=== PATIENT | female | born 1955 | race Caucasian/White ===

== ENCOUNTER 2017-11-19 13:08 | Day surgery (SDC) | payer OTHER ==
[2017-11-19] MEDS ORDERED: LACTATED RINGERS 1,000 ML IV ONE (13:30)
[2017-11-19] MEDS ORDERED: MIDAZOLAM 2 MG/2 ML VIAL IVP ONE (14:10)
[2017-11-19] MEDS ORDERED: fentaNYL 100 MCG/2 ML VIAL IVP ONE (14:10)
--- NOTE | 2017-11-19 14:11 | SURGERY HX AND PHYSICAL(T) ---
Surgical History & Physical - PMH/PSH/Social Hx Does the pt have a hx of MRSA?: No Eyes, Ears, Nose, Throat: None Cardiovascular: High cholesterol Respiratory: None Skin: None Endocrine/Autoimmune: None Gastrointestinal: None Urinary: None Musculoskeletal: None Psychiatric: None General: Colonoscopy Orthopedic: Other Smoking Status: Former smoker Does the pt drink ETOH?: Yes Frequency: Occasional Does the pt have substance abuse?: No - Home Meds and Allergies Home Medications: Atorvastatin Calcium [Lipitor] 04/26/14 Allergies/Adverse Reactions: Allergies Allergy/AdvReac Type Severity Reaction Status Date / Time No Known Drug Allergies Allergy Verified 04/26/14 08:58 - Vital Signs Temperature: 36.3 C Respiratory Rate: 18 O2 Saturation: 94 Weight (kg): 83.2 kg Height: 1.78 m - Patient Review Patient Review: Problems were reviewed with the patient during this visit. Medications were reviewed with the patient during this visit. Allergies were reviewed this patient during this visit. Pertinent Tests Reviewed: All pertitent test for this patient were reviewed. - Assessment & Plan Assessment and Plan: The patient was initially seen on September 20, 2017 for the same reason. The procedure was then scheduled out more than 30 days thus mandating an updated H& P. In my discussion with the patient there are no changes o her H&P - no new diagnoses, no new medications, no new allergies and no medications have been stopped. Additionally the patient does not have any new concerns or questions. Back on September 20, 2017, ARIELLE Maldonado sends this very pleasant 62 year-old female to our office for a screening colonoscopy She describes her bowel movements as regular and normal. She denies nausea, vomiting, constipation, diarrhea, melena, hematochezia, hematemesis, abdominal pain, unexplained weight loss, or change in the color, character or caliber of her stool. Her previous colonoscopy was performed December 24, [address] Lowell Donaldson and was described as a normal colonoscopy. Current Allergies: None. Current Medications: SUPREP BOWEL PREP KIT 17.5-3.13-1.6 GM/180ML ORAL SOLUTION (NA SULFATE-K SULFATE -MG SULF) Take one (6oz) bottle by mouth the PM before colonoscopy & one (6oz) bottle by mouth the AM of colonoscopy as directed by surgical clinic Past Medical History: Hyperlipidemia Menopause Past Surgical History: Shoulder Knee Family History Summary: Mother () - Has Family History of Other Medical Problems - HTN - Entered On: 09/20/2017 Risk Factors: Smoked Tobacco Use: Former smoker Cigarettes: Yes Year quit: 2006 Years Since Last Quit: 11 Drug use: no Alcohol use: no Exercise: yes Times per week: 3 Review of Systems CONSTITUTIONAL: No weight loss, fever, chills, weakness or fatigue. HEENT: Eyes: No visual loss, blurred vision, double vision or yellow sclerae. Ears, Nose, Throat: No hearing loss, sneezing, congestion, runny nose or sore throat. SKIN: No rash or itching. CARDIOVASCULAR: No chest pain, chest pressure or chest discomfort. No palpitations or edema. RESPIRATORY: No shortness of breath, cough or sputum. GASTROINTESTINAL: No anorexia, nausea, vomiting or diarrhea. No abdominal pain or blood. GENITOURINARY: No dysuria. Not . NEUROLOGICAL: No headache, dizziness, syncope, paralysis, ataxia, numbness or tingling in the extremities. No change in bowel or bladder control. MUSCULOSKELETAL: No muscle, back pain, joint pain or stiffness. HEMATOLOGIC: No anemia, bleeding or bruising. LYMPHATICS: No enlarged nodes. No history of splenectomy. PSYCHIATRIC: No history of depression or anxiety. ENDOCRINOLOGIC: No reports of sweating, cold or heat intolerance. No polyuria or polydipsia. ALLERGIES: No history of asthma, hives, eczema or rhinitis. Physical Exam General: 62 year old female, appears stated age, well developed, well nourished , evaluated in Room 4 in Ambulatory Surgery HEENT: Normocephalic, atraumatic, extraocular movement intact, mucous membranes pink and moist, sclera anicteric and not injected, glasses Neck: Supple without pain on palpation, mass or bruit Cardiac: Regular rate and rhythm without rub, gallop, or murmur Chest: Clear to auscultation bilaterally Abdomen: Soft, nontender, normoactive bowel sounds, no hepatomegaly, no splenomegaly Genitourinary: Deferred Rectal: Deferred until colonoscopy Extremities: No gross neurovascular problem, no clubbing, cyanosis or edema Gait: No gross motor deficit Psychiatric: Alert and oriented to person place and time, asks and answers questions appropriately, mood and affect appropriate Impression & Recommendations: Screening colonoscopy with possible biopsies and/or polypectomies. Indications , procedure, alternatives (such as barium enema, Cologuard and even no procedure at all) and risks including but not limited to perforation requiring operative repair, bleeding with its risks, and were fully explained to him. In the office, I rosy diagrams explaining the colonic anatomy and the proposed procedure and handed it to him. In the office, conscious sedation was discussed at length with him as were its risks including but not limited to loss of airway, aspiration, respiratory depression, and not enough relief of pain and anxiety and he indicated that he wished to have conscious sedation for his procedure. In the office, I explained that MAC anesthesia is associated with a higher incidence of colon perforation. Review of his history does not reveal any significant systemic disease that would contraindicate use of conscious sedation or MAC anesthesia. All questions were fully answered. Verbal and written consent was obtained. The patient in preparation for his colonoscopy has been n.p.o. and his colon has been mechanically prepped. 20 minutes of [id number] time spent with the patient the majority of which was spent in discussion and in the generation of this document
[2017-11-19 15:23] VITALS: BP 118/63
== END 2017-11-19 13:09 | disposition home or self-care (01) ==
LOC: SDS 13:08
PROVIDERS: ATTEND Surgery
PROC: 0DBP8ZZ Excision of Rectum, Via Natural or Artificial Opening Endoscopic (ICD-10-PCS; principal; 2017-11-19 14:15)
DX: Z12.11 Encounter for screening for malignant neoplasm of colon (principal); D12.8 Benign neoplasm of rectum; K57.30 Diverticulosis of large intestine without perforation or abscess without bleeding; K64.8 Other hemorrhoids; E78.5 Hyperlipidemia, unspecified; Z87.891 Personal history of nicotine dependence
CPT/HCPCS: 45385; J7120; 88305

== ENCOUNTER 2020-05-12 14:40 | Outpatient (CLI) | payer MEDICARE, OTHER ==
[2020-05-12] MEDS ORDERED: GADOBUTROL 10 MMOL/10 ML VIAL ONE (14:52)
--- NOTE | 2020-05-12 17:15 | MRI Report ---
PROCEDURE: Pelvis W/WO INDICATIONS: OVARIAN CYST CONTRAST: IV CONTRAST: Gadavist ml: 10 TECHNIQUE: Coronal ultra fast SE, sagittal breath-hold T2 FSE; axial T1 FSE with and without fat saturation thro ugh the pelvis. Optional long- and short-axis uterine nonbreath-hold T2 FSE through the uterus. Sag ittal or axial dynamic ultra fast GE during administration of contrast. Post-contrast axial or coron al ultra fast GE / 2-D spoiled GE with fat saturation from the iliac crests to the symphysis. Option al diffusion weighted imaging and ADC may be performed. COMPARISON: Pelvic ultrasound 04/23/2020. CT abdomen and pelvis 04/23/2020. FINDINGS: Image quality: Excellent. Uterus: Uterus is atrophic. Endometrium is normal in thickness. Junctional zone is normal in thick ness at 12 mm or less. Small nabothian cysts. Adnexa: Both ovaries are normal in size, without suspicious cystic or solid lesions. Right ovarian c yst measuring 2 x 1.7 cm, (601/22). The cyst demonstrates homogeneous intrinsic T1 hyperintensity whi ch drops out on the fat saturation sequence and T2 isointensity/hypointensity. No suspicious enhancem ent. Urinary system: Bladder is decompressed. Distal ureters are non distended. Urethra appears normal in morphology. Nodes and vessels: No pelvic or inguinal adenopathy by size criteria. Iliac vessels are normal in s ize. Bowel and peritoneum: No pathologic free pelvic fluid. Inferior colon and small bowel loops are nor mal in caliber. Diverticulosis. Soft tissues: No inguinal hernias. No findings of pelvic floor incompetence in the absence of provo cation. Bones: Marrow demonstrates normal overall signal. IMPRESSION: 1. Small right ovarian cyst measuring 2 cm demonstrates internal fat signal and no suspicious enhance ment. This is consistent with a benign dermoid cyst. 2. No hydrosalpinx. No free fluid. 3. No suspicious ovarian mass or cystic lesion. 4. Atrophic uterus. 5. Diverticulosis. Reviewed by: Luis Crowell MD on 05/12/2020 5:13 PM PDT Approved by: Luis Crowell MD on 05/12/2020 5:13 PM PDT Station ID: [id number]
== END 2020-05-12 14:41 | disposition home or self-care (01) ==
LOC: DI 14:40
PROVIDERS: ATTEND Family Medicine
DX: N85.8 Other specified noninflammatory disorders of uterus (principal); K57.90 Diverticulosis of intestine, part unspecified, without perforation or abscess without bleeding
CPT/HCPCS: 72197; A9585

== ENCOUNTER 2020-09-30 07:00 | Outpatient (CLI) | payer MEDICARE, OTHER | END 2020-09-30 23:59 | disposition home or self-care (01) | LOC: COV 07:00 | PROVIDERS: ATTEND Family Medicine | DX: U07.1 COVID-19 (principal) ==

== ENCOUNTER 2021-06-13 13:13 | Outpatient (CLI) | payer MEDICARE, OTHER ==
--- NOTE | 2021-06-14 13:55 | Mammography Report ---
BILATERAL DIGITAL SCREENING MAMMOGRAM 3D/2D: 06/13/2021 CLINICAL: Routine screening. Comparison is made to exams dated: 06/22/2020 mammogram - [facility], 05/19/2019 mamm ogram, 08/30/2016 mammogram - [facility], 08/13/2015 mammogram, 08/13/2015 mammogram, an d 08/13/2015 mammogram - [facility]. There are scattered fibroglandular elements in both breasts. There are benign post operative findings in both breasts. No significant masses, calcifications, or other findings are seen in either breast. There has been no significant interval change. IMPRESSION: BENIGN There is no mammographic evidence of malignancy. A 1 year screening mammogram is recommended. This exam was interpreted at Station ID: [id number]. NOTE: For mammograms, a report in lay terms will be sent to the patient. Approximately 15% of breast malignancies will not be visualized mammographically. In the management of a palpable breast mass, a negative mammogram must not discourage biopsy of a clinically suspicious lesion. Electronically Signed By: Lloyd Downey M.D. aty/penrad:06/13/2021 15:57:54 ACR BI-RADS Category 2: Benign Finding(s) 3342F PARENCHYMAL PATTERN: (A) - The breast(s) demonstrate(s) scattered fibroglandular densities. BI-RADS CATEGORY: (2) - 2 RECOMMENDATION: (ANNUAL) - Recommend routine annual screening mammography. [id number] 1 year screening LATERALITY: (B)
== END 2021-06-13 13:14 | disposition home or self-care (01) ==
LOC: DI 13:13
DX: Z12.31 Encounter for screening mammogram for malignant neoplasm of breast (principal)

== ENCOUNTER 2021-12-05 11:36 | Emergency (ER) | payer MEDICARE, OTHER ==
--- NOTE | 2021-12-05 12:03 | ED Physician Documentation ---
PD HPI BACK PAIN - Stated complaint Stated Complaint: BACK PAIN - Chief complaint Chief Complaint: Back Pain - History obtained from History obtained from: Patient - History of Present Illness Timing - onset: How many days ago (few days of low back pain without injury/traumatic onset. Was having stretching. TOday when bent over to stretch, had onset of right neck pain and feeling of marked vertigo.) Timing - details: Abrupt onset, Now resolved (notes the vertigo when tilts head up and quickly moves, getting spinning lightheadedness.) Location: Mid, Lower, Right Quality: Pain Associated symptoms: No: Fever, Weakness, Numbness, Incontinent of urine Improves with: No: Rest, Ice Worsened by: Movement, Twisting, Palpation, Other (vertigo worse with head movement.) Similar symptoms before: Has not had sx before Recently seen: Not recently seen Review of Systems Constitutional: denies: Fever, Chills Nose: denies: Rhinorrhea / runny nose, Congestion Throat: denies: Sore throat Cardiac: denies: Chest pain / pressure, Palpitations Respiratory: denies: Cough GI: denies: Abdominal Pain, Nausea, Vomiting, Diarrhea Skin: denies: Rash, Lesions Musculoskeletal: reports: Neck pain, Back pain Neurologic: denies: Focal weakness, Numbness, Near syncope, Headache, Head injury PD PAST MEDICAL HISTORY - Past Medical History Past Medical History: Yes Cardiovascular: High cholesterol Respiratory: None Neuro: None Endocrine/Autoimmune: None GI: None [employer]: None : None HEENT: None Psych: None Musculoskeletal: None Derm: None - Past Surgical History Past Surgical History: Yes General: Colonoscopy Ortho: Other - Present Medications Home Medications: Ambulatory Orders Medication Instructions Recorded Confirmed Sertraline [Zoloft] 50 mg PO DAILY 04/23/20 12/05/21 Atorvastatin Calcium 40 mg PO HS 12/05/21 12/05/21 HYDROcod/ACETAM 5/325 [[place] 5/325] 1 ea PO Q6H PRN #18 tablet 12/05/21 Meclizine HCl [Motion Sickness] 25 mg PO Q6H PRN #25 tablet 12/05/21 dexAMETHasone [Decadron] 4 mg PO DAILY #5 tablet 12/05/21 methocarbamoL [Robaxin] 500 mg PO TID PRN #25 tablet 12/05/21 - Allergies Allergies/Adverse Reactions: Allergies Allergy/AdvReac Type Severity Reaction Status Date / Time No Known Drug Allergies Allergy Verified 12/05/21 11:40 - Social History Does the pt smoke?: No Smoking Status: Never smoker Does the pt drink ETOH?: Yes Does the pt have substance abuse?: No - Immunizations Immunizations are current?: Yes - POLST Patient has POLST: No PD ED PE NORMAL - Vitals Vital signs reviewed: Yes - General General: Alert and oriented X 3, No acute distress - HEENT HEENT: PERRL, EOMI (with nystagmus to the left. ), Moist mucous membranes - Neck Neck: Supple, no meningeal sign, No adenopathy - Cardiac Cardiac: RRR, No murmur - Respiratory Respiratory: Clear bilaterally - Abdomen Abdomen: Soft, Non tender - Back Back: No CVA TTP, Other (tender muscle right la) - Derm Derm: Normal color, Warm and dry, No rash - Extremities Extremities: No edema, No calf tenderness / cord - Neuro Neuro: Alert and oriented X 3, No motor deficit, Normal speech Results - Vitals Vitals: Oxygen O2 Source Room air - Labs Labs: Laboratory Tests 12/05/21 12/05/21 11:56 11:56 WBC 9.7 RBC 4.59 Hgb 14.1 Hct 42.9 MCV 93.5 MCH 30.7 MCHC 32.9 RDW 13.2 Plt Count 282 MPV 10.7 Neut # (Auto) 7.1 H Lymph # (Auto) 1.9 [place] # (Auto) 0.4 Eos # (Auto) 0.1 Baso # (Auto) 0.1 Absolute Nucleated RBC 0.00 Nucleated RBC % 0.0 Sodium 138 Potassium 3.5 Chloride 102 Carbon Dioxide 27 Anion Gap 9.0 BUN 13 Creatinine 0.7 Estimated GFR (MDRD) 83 L Glucose 99 Calcium 9.1 Total Bilirubin 0.6 AST 17 ALT 20 Alkaline Phosphatase 94 Total Protein 7.6 Albumin 4.4 Globulin 3.2 Albumin/Globulin Ratio 1.4 Lipase 27 PD MEDICAL DECISION MAKING - ED course Complexity details: considered differential (back pain without injury and now neck pain and vertigo. likely separate process, but to connect them would likely mean vascular such as aortic with dissection. Can get imaging to eval. ), d/w patient Departure - Departure Disposition: 01 Home, Self Care Clinical Impression: Positional vertigo Back pain, acute Qualifiers: Back pain location: low back pain Back pain laterality: bilateral Sciatica presence: without sciatica Qualified Code(s): M54.50 - Low back pain, unspecified Condition: Stable Record reviewed to determine appropriate education?: Yes Instructions: ED Low Back Pain Injury, ED Vertigo Unspecified Follow-Up: TALISHA MACK DO [Primary Care Provider] - Prescriptions: dexAMETHasone [Decadron] 4 mg PO DAILY #5 tablet Meclizine HCl [Motion Sickness] 25 mg PO Q6H PRN #25 tablet PRN Reason: Vertigo HYDROcod/ACETAM 5/325 [[place] 5/325] 1 ea PO Q6H PRN #18 tablet PRN Reason: Pain methocarbamoL [Robaxin] 500 mg PO TID PRN #25 tablet PRN Reason: Spasms Comments: The CT scan of your head appears normal and your description and findings of the vertigo seen consistent with inner ear process. We can treat this with meclizine motion sickness medicine (antivertigo) along with anti-inflammatory in case of some in her ear inflammation as a cause. Otherwise it may be mechanical with small calcifications just out of place and those typically settle after a while. Your back pain is presumed musculoskeletal. No obvious signs of fractures or significant abnormality on the spine. There are arthritic changes noted on your CT scan. Most importantly there is no signs of organ injury or vascular process such as aneurysms dissections or clots. Continue with gentle stretching of your back. Try to avoid any bending over or head movement per se. Initiate physical therapy as planned. Otherwise continue with some Tylenol 4 times a day and to that add hydrocodone every 4-6 hours if needed for worse pain. You could also use methocarbamol muscle relaxant for stiffness and spasms. Recheck if not improved well over the next several days to week. I transmitted your prescriptions to [facility] in [place]. I am prescribing a short course of narcotic pain medication for you. These are potentially dangerous and addictive medications that should be used carefully. These medications may constipate you. Take an [id number] stool softener such as docusate twice daily with plenty of water while taking these medications. If you go 24 hours without a bowel movement, take [id number] MiraLAX, per package instructions. Do not drink or drive while taking these medications. If you received narcotic or sedating medications while in the emergency department do not drive for 24 hours. Store this medication in a safe, secure place and out of reach of children. It is a violation of federal law to give or sell this medication to another person or to use in a manner other than prescribed. The ED will not refill narcotic prescriptions, including prescriptions lost or stolen. You can dispose of unwanted medications at the [facility] office or at several pharmacies such as [facility]. Discharge Date/Time: 12/05/21 15:43
[2021-12-05] MEDS ORDERED: SODIUM CHLORIDE 0.9% 1,000 ML IV STA (12:33)
[2021-12-05] MEDS ORDERED: HYDROmorphone 1 MG/ML CARPUJECT IVP STA (12:33)
[2021-12-05] MEDS ORDERED: KETOROLAC 30 MG/ML VIAL IVP STA (12:33)
[2021-12-05] MEDS ORDERED: MECLIZINE 12.5 MG TABLET PO STA (12:40)
[2021-12-05] MEDS ORDERED: DEXAMETHASONE 10 MG/ML VIAL IVP STA (12:40)
[2021-12-05 12:47] LABS: BASOPHILS # (AUTO) 0.1 10^3/uL (0.0-0.1); BASOPHILS % (AUTO) 0.9 %; EOSINOPHILS # (AUTO) 0.1 10^3/uL (0.0-0.7); HCT - HEMATOCRIT 42.9 % (37.0-47.0); HGB - HEMOGLOBIN 14.1 g/dL (12.0-16.0); LYMPHOCYTES # (AUTO) 1.9 10^3/uL (1.5-3.5); LYMPHOCYTES % (AUTO) 19.4 %; MEAN CORPUSCULAR HEMOGLOBIN 30.7 pg (27.0-31.0); MEAN CORPUSCULAR HGB CONC 32.9 g/dL (32.0-36.0); MEAN CORPUSCULAR VOLUME 93.5 fL (81.0-99.0); MEAN PLATELET VOLUME 10.7 fL (7.9-10.8); MONOCYTES # (AUTO) 0.4 10^3/uL (0.0-1.0); MONOCYTES % (AUTO) 4.5 %; NEUTROPHILS # (AUTO) 7.1 10^3/uL (1.5-6.6); NEUTROPHILS % (AUTO) 73.8 %; PLT - PLATELET COUNT 282 10^3/uL (130-450); RED BLOOD COUNT 4.59 10^6/uL (4.20-5.40); RED CELL DISTRIBUTION WIDTH 13.2 % (12.0-15.0); WHITE BLOOD COUNT 9.7 x10^3/uL (4.8-10.8)
[2021-12-05 12:59] LABS: ALBUMIN 4.4 g/dL (3.2-5.5); ALBUMIN/GLOBULIN RATIO 1.4 (1.0-2.2); BILIRUBIN,TOTAL 0.6 mg/dL (0.2-1.0); CALCIUM 9.1 mg/dL (8.5-10.3); CREATININE 0.7 mg/dL (0.4-1.0); POTASSIUM 3.5 mmol/L (3.5-5.0); TOTAL PROTEIN 7.6 g/dL (6.7-8.2)
[2021-12-05] MEDS ORDERED: iohexoL-300 100 ML VIAL ONE (13:07)
--- NOTE | 2021-12-05 14:11 | CT Report ---
PROCEDURE: HEAD WO INDICATIONS: acute vertigo last 12 hours TECHNIQUE: Noncontrast 4.5 mm thick angled axial sections acquired from the foramen magnum to the vertex. For r adiation dose reduction, the following was used: automated exposure control, adjustment of mA and/or kV according to patient size. COMPARISON: None. FINDINGS: Image quality: Excellent. CSF spaces: Basal cisterns are patent. No extra-axial fluid collections. The ventricles are symmet valarie in size and shape. Brain: No intracranial bleeds or masses. There is cerebral volume loss for age, with resultant vent ricular and sulcal prominence. There are periventricular and deep white matter chronic small vessel ischemic changes. There is intracranial internal carotid artery atherosclerosis. Skull and face: Calvarium and visualized facial bones appear intact, without suspicious lesions. Sinuses: Visualized sinuses and mastoids are clear. IMPRESSION: 1. No CT evidence of acute intracranial abnormalities. Reviewed by: Killian Britton MD on 12/05/2021 2:10 PM [facility] Approved by: Killian Britton MD on 12/05/2021 2:10 PM [facility] Station ID: [id number]
--- NOTE | 2021-12-05 14:57 | CT Report ---
PROCEDURE: ANGIO CHEST W/WO INDICATIONS: Thoracolumbar pain with lightheadedness; eval aorta CONTRAST: IV CONTRAST: Isovue 300 ml: 100 PO CONTRAST: *NO PO CONTRAST TECHNIQUE: Precontrast 3 mm thick sections acquired from the aortic arch through the diaphragms. After the admi nistration of intravenous contrast, 3 mm thick sections again acquired from the lung apices through t he diaphragms. 3 mm coronal and sagittal reformats were performed. For radiation dose reduction, the following was used: automated exposure control, adjustment of mA and/or kV according to patient size . COMPARISON: Concurrent CTA of the abdomen and pelvis, CT abdomen pelvis 04/23/2020. FINDINGS: Image quality: Excellent. AORTA: Noncontrast images demonstrate no evidence of intramural hematoma. The thoracic aorta is caden l in caliber and contour. No intimal flaps are identified to suggest aortic dissection. No contour ir regularities to suggest acute aortic injury. No periaortic hematoma. There is conventional branching of the aortic arch. The visualized great vessels are normal in caliber and appear patent. The celiac and superior mesenteric arteries within the visualized upper abdomen appear patent. The visualized re nal arteries also appear patent, with mild sclerotic narrowing in the proximal right renal artery. Th ere is mild scattered atherosclerotic plaque along the visualized aorta and its branch vessels. CHEST: Lungs and pleura: There is bilateral pleural thickening in the lung apices, right greater than left. There is also lobulated pleural thickening posteriorly along the right upper lobe measuring up to 1 .9 x 0.7 cm in transverse dimension on series 7 image 51. No acute consolidation. There are bilateral indistinct areas of mild ground glass opacity. There are a few small scattered pulmonary nodules rajesh aterally. These include a right middle lobe nodule measuring 0.4 cm on series 7 image 172, a 0.5 cm r ight middle lobe nodule on series 7 image 181, a 0.3 cm nodule in the right lower lobe on series 7 im age 233, and a 0.3 cm left lower lobe nodule on series 7 image 21. There are mild paraseptal emphysem atous changes. No pleural effusions or pneumothorax. Central and peripheral airways are patent and n ormal in caliber. Mediastinum: Heart size is normal. No pericardial effusion. No mediastinal or hilar adenopathy by size criteria. The pulmonary arteries are normal in size and demonstrate no filling defects to sugges t central pulmonary embolism. Esophagus is normal in caliber. There is a small hiatal hernia. Bones and chest wall: No axillary adenopathy by size criteria. The visualized thyroid demonstrates no discrete nodules. No suspicious bony lesions. No vertebral body compression fractures. There is m ultilevel degenerative disc disease including moderate degeneration within the mid and lower thoracic spine. Bridging anterior osteophytes are also demonstrated within the thoracic spine consistent with DISH. ABDOMEN: The visualized upper abdomen redemonstrates multiple left hepatic cysts. IMPRESSION: 1. No evidence of dissection or aneurysm dilatation in the thoracic aorta. 2. No central pulmonary embolism. 3. No acute airspace consolidation. 4. Small indistinct groundglass opacities bilaterally are nonspecific and may reflect mild chronic ed vick or mild infectious or inflammatory process. 5. Small bilateral nonspecific pulmonary nodules measuring up to 0.5 cm. There is also asymmetric ple ural thickening posteriorly along the right upper lobe. Recommend follow-up CT in 6 months to demonst rate stability. 6. Multilevel degenerative disc disease in the mid and lower thoracic spine. Reviewed by: Alfonso Denis MD on 12/05/2021 2:56 PM PST Approved by: Alfonso Denis MD on 12/05/2021 2:56 PM PST Station ID: [id number]
--- NOTE | 2021-12-05 15:07 | CT Report ---
PROCEDURE: ANGIO ABDOMEN/PELVIS W INDICATIONS: thoracolumbar back pain with lightheadedness CONTRAST: IV CONTRAST: Isovue 300 ml: 100 PO CONTRAST: *NO PO CONTRAST TECHNIQUE: After the administration of intravenous contrast, 3 mm sections acquired from the diaphragm through t he pubic symphysis. 3-dimensional maximum intensity projection (MIP) coronal and sagittal reformats, and/or 3-dimensional volume rendering reformatting was then performed. For radiation dose reduction , the following was used: automated exposure control, adjustment of mA and/or kV according to patien t size. COMPARISON: Concurrent CTA of the chest, CT abdomen pelvis 04/23/2020 FINDINGS: Image quality: Excellent. Extravascular tissues: The visualized lung bases demonstrate no consolidation. There are a few scatte red small bilateral pulmonary nodules as described on the concurrent CT of the chest. Heart size is n ormal. Multiple cysts are redemonstrated within the left hepatic lobe. Gallbladder appears within no rmal limits without calcified gallstones. There is a phrygian cap noted. Biliary system is non dilate d. Pancreas enhances normally. No adrenal nodules. Kidneys demonstrate no hydronephrosis. The splee n is normal in size. There is a small hiatal hernia. Small and large bowel loops demonstrate normal w all thickness and caliber. The appendix is normal in appearance. There is colonic diverticulosis with out acute diverticulitis. No free fluid or air. No retroperitoneal or mesenteric adenopathy. No ve ntral hernias. There is a small oval fat density mass within the right adnexa redemonstrated, measuri ng up to 1.3 cm with associated eccentric focus of calcification suggestive of a dermoid. Abdominal aorta: The aorta is normal in caliber and contour without intimal flaps to suggest dissect ion. The common, external, and internal iliac arteries also appear patent. The common femoral and vis ualized proximal superficial femoral arteries also appear patent. There is scattered mild atheroscler otic plaque bilaterally. The celiac artery and its branches appear widely patent. The superior mesenteric artery demonstrates moderate short segment narrowing proximally of up to approximately 50%. Remaining opacified superior mesenteric artery branches appear patent. The inferior mesenteric artery appears patent. There are si ngle renal arteries bilaterally. There is mild narrowing in the proximal right renal artery near its origin. The liver and artery appears widely patent along its course. Bones: There is multilevel mild to moderate degenerative disc disease within the visualized lower tho racic spine and mild degenerative disc disease in the lumbar spine. Mild inferior endplate scalloping is demonstrated at a few levels most prominent within the L1 vertebral body. No vertebral compressio n fractures. There is mild facet arthropathy in the lower lumbar spine. IMPRESSION: 1. No evidence of aortic aneurysm in the abdominal aorta. 2. No high-grade stenosis or occlusion of the abdominal aorta or its proximal branch vessels. 3. Mild short segment narrowing in the proximal superior mesenteric artery of up to approximately 50% . 4. Probable dermoid in the right adnexa. Reviewed by: Alfonso Denis MD on 12/05/2021 3:06 PM PST Approved by: Alfonso Denis MD on 12/05/2021 3:06 PM PST Station ID: [id number]
[2021-12-05 15:43] VITALS: BP 145/66
[2021-12-05] MEDS ORDERED: iohexoL-300 100 ML VIAL IVP ONE (19:09)
== END 2021-12-05 15:43 | disposition home or self-care (01) ==
LOC: ED 11:36
DX: H81.10 Benign paroxysmal vertigo, unspecified ear (principal); M54.50 Low back pain, unspecified
CPT/HCPCS: 36415; 70450; 71275; 74174; 80053; 83690; 85025; 96374; 99284; A9270; J1170; Q9967

== ENCOUNTER 2022-02-02 08:07 | Emergency (ER) | payer MEDICARE, OTHER ==
[2022-02-02] MEDS ORDERED: KETOROLAC 15 MG/ML VIAL IVP STA (08:21)
--- NOTE | 2022-02-02 08:24 | ED Physician Documentation ---
PD HPI ABD PAIN - Stated complaint Stated Complaint: RT SIDE PX - Chief complaint Chief Complaint: Abd Pain - History obtained from History obtained from: Patient - Additional information Additional information: 66-year-old woman with sudden onset right-sided abdominal pain starting last night. She was not doing anything specific at the time. She had noted urinary frequency associated with this. Denies nausea or other changes in urination or bowel movements. No history of abdominal surgeries. Pain is severe but declines narcotics as she is driving. Of note she was seen for right-sided abdominal pain in April 2020. At that time work-up demonstrated a small pelvic mass of unknown etiology. Follow-up was recommended [place] no [place]evaluation was ever done. Review of Systems Ten Systems: 10 systems reviewed and negative Constitutional: denies: Fever, Chills Cardiac: denies: Chest pain / pressure Respiratory: denies: Dyspnea, Cough GI: reports: Abdominal Pain. denies: Nausea, Vomiting, Constipation, Diarrhea, Hematemesis, Bloody / black stool PD PAST MEDICAL HISTORY - Past Medical History Cardiovascular: High cholesterol Respiratory: None Neuro: None Endocrine/Autoimmune: None GI: None PETROLOGIST: None : None HEENT: None Psych: None Musculoskeletal: None Derm: None - Past Surgical History Past Surgical History: Yes General: Colonoscopy Ortho: Other - Present Medications Home Medications: Ambulatory Orders Medication Instructions Recorded Confirmed Sertraline [Zoloft] 50 mg PO DAILY 04/23/20 12/05/21 Atorvastatin Calcium 40 mg PO HS 12/05/21 12/05/21 HYDROcod/ACETAM 5/325 [[place] 5/325] 1 ea PO Q6H PRN #18 tablet 12/05/21 Meclizine HCl [Motion Sickness] 25 mg PO Q6H PRN #25 tablet 12/05/21 dexAMETHasone [Decadron] 4 mg PO DAILY #5 tablet 12/05/21 methocarbamoL [Robaxin] 500 mg PO TID PRN #25 tablet 12/05/21 Ciprofloxacin HCl [Cipro] 500 mg PO BID #20 tablet 02/02/22 HYDROcod/ACETAM 5/325 [[place] 5/325] 1 - 2 tab PO Q6H PRN #15 tablet 02/02/22 metroNIDAZOLE [Flagyl] 500 mg PO TID 10 Days #30 tablet 02/02/22 - Allergies Allergies/Adverse Reactions: Allergies Allergy/AdvReac Type Severity Reaction Status Date / Time No Known Drug Allergies Allergy Verified 02/02/22 08:14 - Social History Does the pt smoke?: No Smoking Status: Never smoker Does the pt drink ETOH?: Yes Does the pt have substance abuse?: No - Immunizations Immunizations are current?: Yes - POLST Patient has POLST: No PD ED PE NORMAL - Vitals Vital signs reviewed: Yes - General General: Alert and oriented X 3, Other (She appears uncomfortable and in pain) - HEENT HEENT: PERRL, EOMI - Neck Neck: Supple, no meningeal sign, No bony TTP - Cardiac Cardiac: RRR, No murmur - Respiratory Respiratory: No respiratory distress, Clear bilaterally - Abdomen Abdomen: Normal bowel sounds, Soft, Other (Exquisitely tender in the right upper quadrant with positive Juan sign. No diffuse abdominal tenderness.) - Back Back: No CVA TTP, No spinal TTP - Derm Derm: Normal color, Warm and dry - Extremities Extremities: No edema, No calf tenderness / cord - Neuro Neuro: Alert and oriented X 3, Normal speech Results - Vitals Vitals: Vital Signs - 24 hr 02/02/22 08:10 Temperature 37.2 C Heart Rate 83 Respiratory 19 Rate Blood Pressure 130/65 O2 Saturation 95 Oxygen O2 Source Room air - Labs Labs: Laboratory Tests 02/02/22 02/02/22 02/02/22 08:36 08:36 08:50 WBC 14.6 H RBC 4.21 Hgb 12.8 Hct 38.7 MCV 91.9 MCH 30.4 MCHC 33.1 RDW 13.2 Plt Count 246 MPV 10.4 Neut # (Auto) 10.3 H Lymph # (Auto) 2.7 [place] # (Auto) 1.1 H Eos # (Auto) 0.3 Baso # (Auto) 0.1 Absolute Nucleated RBC 0.00 Nucleated RBC % 0.0 Sodium 142 Potassium 3.5 Chloride 105 Carbon Dioxide 24 Anion Gap 13.0 BUN 11 Creatinine 0.7 Estimated GFR (MDRD) 83 L Glucose 102 H Calcium 8.5 Total Bilirubin 0.6 AST 18 ALT 27 Alkaline Phosphatase 74 Total Protein 7.0 Albumin 3.8 Globulin 3.2 Albumin/Globulin Ratio 1.2 Lipase 33 Urine Color YELLOW Urine Clarity CLEAR Urine pH 5.5 Ur Specific [place] >=1.030 H Urine Protein NEGATIVE Urine Glucose (UA) NEGATIVE Urine Ketones NEGATIVE Urine Occult Blood MODERATE H Urine Nitrite NEGATIVE Urine Bilirubin NEGATIVE Urine Urobilinogen 0.2 (NORMAL) Ur Leukocyte Esterase TRACE H Urine RBC 0-5 Urine WBC 4-5 Ur Squamous Epith Cells MOD Squamous H Urine Bacteria Moderate H Ur Microscopic Review INDICATED Urine Culture Comments NOT INDICATED - Rads (name of study) Abdominal CT with IV contrast consistent with colitis Radiology: EMP read contemporaneously PD MEDICAL DECISION MAKING - ED course ED course: 66-year-old woman presents with right upper quadrant pain since yesterday with tenderness. Initial concern was for biliary etiology but an ultrasound did not show any gallbladder pathology. Of note she had a prior lesion in the right adnexa and this was reevaluated today without change suggesting a benign grant ology after 2 years. Since the ultrasound was negative this was followed with CT showing cystitis/right-sided colitis and this will be treated with Cipro and Flagyl pending follow-up. She understands the need for colonoscopy and follow- up. Departure - Departure Disposition: 01 Home, Self Care Clinical Impression: Abdominal pain, Colitis Condition: Good Record reviewed to determine appropriate education?: Yes Instructions: Abdominal Pain Prescriptions: Ciprofloxacin HCl [Cipro] 500 mg PO BID #20 tablet metroNIDAZOLE [Flagyl] 500 mg PO TID 10 Days #30 tablet HYDROcod/ACETAM 5/325 [[place] 5/325] 1 - 2 tab PO Q6H PRN #15 tablet PRN Reason: Pain Comments: As discussed, the right ovarian lesion which likely represents a dermoid cyst has not changed over the last 2 years and as such I do not think any further follow-up is necessary for that. On the CT, you do have a case of right-sided colitis. For this I sent a prescription for antibiotics and painkillers to [facility] in [place]. As discussed, you should talk with your primary care physician about getting you scheduled for a colonoscopy albeit not immediately to further evaluate this. Do not drink alcohol while on antibiotics. Return anytime if worse, or if not improving over the next 48 hours. Follow-up with your doctor next week. I am prescribing a short course of narcotic pain medication for you. These are potentially dangerous and addictive medications that should be used carefully. These medications may constipate you. Take an azlq-rxn-ogdpsiy stool softener (docusate) twice daily with plenty of water while taking these medications. If you go 24 hours without a bowel movement, take [id number]-djm-vgolkyh miralax, per package instructions. Do not drink or drive while taking these medications. If you received narcotic or sedating medications while in the emergency department, do not drive for 24 hours. Store this medication in a safe, secure place and out of reach of children. It is a violation of federal law to give or sell this medication to another person or to use in a manner other than prescribed. The ED will not refill narcotic prescriptions, including prescriptions lost or stolen. To dispose of unwanted medications: 1. [facility] [address] in [place] has a medication drop box. They accept prescription medications (in pill form) Sunday through Sunday 9:00 a.m. to 5:00 p.m. 2. The [facility] [employer] accepts prescription medications (in pill form only) for disposal year round. Call for more i nformation. 3. Contact the [facility] for the next [facility] sponsored prescription drug collection event. , [phone], or [phone]; Note that many narcotic pain relievers also contain Tylenol/acetaminophen. Please ensure that your total dose of acetaminophen from all sources does not exceed 3 g (3000 mg) per day.
[2022-02-02 08:42] LABS: BASOPHILS # (AUTO) 0.1 10^3/uL (0.0-0.1); BASOPHILS % (AUTO) 0.5 %; EOSINOPHILS # (AUTO) 0.3 10^3/uL (0.0-0.7); EOSINOPHILS % (AUTO) 2.3 %; HCT - HEMATOCRIT 38.7 % (37.0-47.0); HGB - HEMOGLOBIN 12.8 g/dL (12.0-16.0); LYMPHOCYTES # (AUTO) 2.7 10^3/uL (1.5-3.5); LYMPHOCYTES % (AUTO) 18.7 %; MEAN CORPUSCULAR HEMOGLOBIN 30.4 pg (27.0-31.0); MEAN CORPUSCULAR HGB CONC 33.1 g/dL (32.0-36.0); MEAN CORPUSCULAR VOLUME 91.9 fL (81.0-99.0); MEAN PLATELET VOLUME 10.4 fL (7.9-10.8); MONOCYTES # (AUTO) 1.1 10^3/uL (0.0-1.0); MONOCYTES % (AUTO) 7.6 %; NEUTROPHILS # (AUTO) 10.3 10^3/uL (1.5-6.6); NEUTROPHILS % (AUTO) 70.6 %; PLT - PLATELET COUNT 246 10^3/uL (130-450); RED BLOOD COUNT 4.21 10^6/uL (4.20-5.40); RED CELL DISTRIBUTION WIDTH 13.2 % (12.0-15.0); WHITE BLOOD COUNT 14.6 x10^3/uL (4.8-10.8)
[2022-02-02 08:54] LABS: ALBUMIN 3.8 g/dL (3.2-5.5); ALBUMIN/GLOBULIN RATIO 1.2 (1.0-2.2); BILIRUBIN,TOTAL 0.6 mg/dL (0.2-1.0); CALCIUM 8.5 mg/dL (8.5-10.3); CREATININE 0.7 mg/dL (0.4-1.0); POTASSIUM 3.5 mmol/L (3.5-5.0)
[2022-02-02 08:58] LABS: BILIRUBIN,URINE NEGATIVE (NEGATIVE); GLUCOSE, URINE (UA) NEGATIVE (NEGATIVE); KETONES,URINE (UA) NEGATIVE (NEGATIVE); LEUKOCYTE ESTERASE, URINE TRACE (NEGATIVE); NITRITE,URINE NEGATIVE (NEGATIVE); OCCULT BLOOD,URINE MODERATE (NEGATIVE); PH,URINE 5.5 PH (5.0-7.5); PROTEIN,URINE NEGATIVE (NEGATIVE); UROBILINOGEN,URINE 0.2 (NORMAL) E.U./dL (NORMAL)
[2022-02-02 09:00] LABS: CLARITY,URINE CLEAR (CLEAR)
[2022-02-02 09:15] LABS: BACTERIA,URINE Moderate /HPF (None Seen); RBC,URINE 0-5 /HPF (0-5); SQUAMOUS EPITHELIAL CELL,UR MOD Squamous (<= Few)
[2022-02-02] MEDS ORDERED: IOVERSOL 320 100 ML VIAL IVP ONE ×2 (10:04→10:34)
--- NOTE | 2022-02-02 10:29 | Ultrasound Report ---
PROCEDURE: Abdomen Limited INDICATIONS: RUQ pain TECHNIQUE: Real-time focused scanning was performed of the abdomen, with image documentation. COMPARISON: CTA 12/05/2021 FINDINGS: The liver is upper limits of normal in size with diffuse increased echogenicity. A few hepatic cysts are again seen, largest of which measures 4.2 cm, as seen on prior CT. The gallbladder appears normal without gallstones or gallbladder wall thickening. There is no pericho lecystic fluid. Sonographic Juan sign is negative. A phrygian cap is incidentally noted. No intrahepatic or extra hepatic biliary duct dilatation. Common bile duct measures 6 mm at the midpo rtion and 3 mm distally. The pancreas is not well seen due to overlying bowel gas. Right kidney is normal in size at 12.7 cm with normal cortical thickness. No hydronephrosis. No free fluid is seen in the right upper quadrant. IMPRESSION: 1.Diffusely increased hepatic echogenicity is nonspecific, but most commonly encountered in the setti ng of hepatic steatosis. However, other causes of hepatocellular disease are not excluded. Recommend clinical correlation. 2.Normal gallbladder. Reviewed by: Galo Edwards MD on 02/02/2022 9:27 AM ALISA Approved by: Galo Edwards MD on 02/02/2022 9:27 AM ALISA Station ID: [id number]
--- NOTE | 2022-02-02 10:34 | CT Report ---
PROCEDURE: Abdomen/Pelvis W INDICATIONS: IV only, R abd pain CONTRAST: IV CONTRAST: Optiray 320 ml: 100 PO CONTRAST: *NO PO CONTRAST TECHNIQUE: After the administration of IP contrast, 5 mm thick sections acquired from the diaphragms to the symp hysis. 5 mm thick coronal and sagittal reformats were acquired. For radiation dose reduction, the f ollowing was used: automated exposure control, adjustment of mA and/or kV according to patient size. COMPARISON: CT abdomen pelvis 12/05/2021 FINDINGS: Image quality: Excellent. ABDOMEN: Lung bases: Lung bases are clear. Heart size is normal. Solid organs: Liver is at the upper limits of normal in size. The spleen is normal in size. Low-atte nuation hepatic foci are present, unchanged and most suggestive of cysts. Hepatic steatosis is presen t. Gallbladder is unremarkable Biliary system is non dilated. Pancreas enhances normally. No adren al nodules. Kidneys demonstrate normal size and enhancement, without hydronephrosis. Peritoneum and bowel: Bowel loops are nonobstructed. There is incomplete distention, limiting evalua tion. There is a mild appearance of thickening within the cecum overall nonspecific and new compared to prior exam. Minimal pericolonic stranding is present. Appendix is normal. Nodes and vessels: No retroperitoneal or mesenteric adenopathy by size criteria. Aorta and inferior vena cava are normal in size. Miscellaneous: No ventral hernias. PELVIS: Genitourinary: Bladder wall thickness is normal. Miscellaneous: No inguinal hernias or adenopathy. Bones: No suspicious bony lesions. No vertebral body compression fractures. IMPRESSION: Mild appearance of nonspecific thickening within the cecum possibly related to incomplete distention. There are several areas of interval pericolonic stranding within this region and colitis cannot be d efinitively excluded. Recommend interval follow-up to document resolution and exclude presence of und erlying mass lesion. Reviewed by: Mary Monk MD on 02/02/2022 10:33 AM PDT Approved by: Mary Monk MD on 02/02/2022 10:33 AM PDT Station ID: [id number]
--- NOTE | 2022-02-02 10:37 | Ultrasound Report ---
PROCEDURE: Pelvic w/Transvag+Doppler Comp INDICATIONS: Reeval pelvic mass from April 2020 TECHNIQUE: Real-time scanning was performed of the pelvic organs, with image documentation. Additional endovagi nal scanning was necessary due to incomplete visualization of the adnexal and endometrial structures by transabdominal scanning. Doppler interrogation was performed of the ovaries bilaterally. COMPARISON: CTA 12/05/2021. Pelvic US 04/23/2020. Pelvic MR 05/12/2020. FINDINGS: No pathologic free abdominal or pelvic fluid. Uterus: Uterus is normal in size at 3.5 x 2.2 x 3.5 cm. The uterus is retroverted and the myometriu m is mildly coarsened. The endometrium measures 2 mm in combined thickness. Trace amount of fluid is seen in the endometrial canal. Ovaries: Right ovary measures 2 x 1 x 1 cm (1.1 mL). Left ovary measures 2.3 x 1.1 x 0.9 cm (1.2 mL) . Right adnexal circumscribed hypoechoic lesion measures 1.7 x 1.5 x 1.7 cm (previously 1.8 x 1.6 x 1 .9 cm on ultrasound from 04/23/2020). This lesion was characterized as a dermoid cyst on prior MRI fro m 05/12/2020. Normal appearing arterial and venous waveforms are confirmed to each ovary. Normal-appearing right pelvic lymph node is incidentally noted. IMPRESSION: 1.Right ovarian dermoid cyst measures 2 1.7 cm, not significantly changed in size when compared to th e prior ultrasound from 04/23/2020. 2.No acute sonographic abnormality in the pelvis. Reviewed by: Galo Edwards MD on 02/02/2022 9:36 AM ALISA Approved by: Galo Edwards MD on 02/02/2022 9:36 AM ALISA Station ID: [id number]
[2022-02-02 10:55] VITALS: BP 117/73
== END 2022-02-02 10:59 | disposition home or self-care (01) ==
LOC: ED 08:07
DX: K52.9 Noninfective gastroenteritis and colitis, unspecified (principal)
CPT/HCPCS: 36415; 74177; 76705; 76830; 76856; 80053; 81001; 83690; 85025; 93975; 96374; 99283; 99284; Q9967; 81003; 87086

== ENCOUNTER 2023-02-13 12:15 | Emergency (ER) | payer MEDICARE, OTHER ==
--- NOTE | 2023-02-13 13:13 | XRAY Report ---
PROCEDURE: Chest 1 View X-Ray INDICATIONS: Chest Pain TECHNIQUE: One view of the chest was acquired. COMPARISON: CT chest 12/05/2021 FINDINGS: Surgical changes and devices: None. Lungs and pleura: No pleural effusions or pneumothorax. Lungs are clear. Mediastinum: Mediastinal contours appear normal. Heart size is normal. Bones and chest wall: No suspicious bony lesions. Overlying soft tissues appear unremarkable. IMPRESSION: No acute pulmonary process. Reviewed by: Mary Monk MD on 02/13/2023 1:12 PM PDT Approved by: Mary Monk MD on 02/13/2023 1:12 PM PDT Station ID: [id number]
[2023-02-13 13:16] LABS: BASOPHILS # (AUTO) 0.1 10^3/uL (0.0-0.1); BASOPHILS % (AUTO) 1.2 %; EOSINOPHILS # (AUTO) 0.2 10^3/uL (0.0-0.7); EOSINOPHILS % (AUTO) 2.1 %; HCT - HEMATOCRIT 41.6 % (37.0-47.0); HGB - HEMOGLOBIN 13.4 g/dL (12.0-16.0); LYMPHOCYTES # (AUTO) 2.1 10^3/uL (1.5-3.5); LYMPHOCYTES % (AUTO) 25.6 %; MEAN CORPUSCULAR HEMOGLOBIN 30.2 pg (27.0-31.0); MEAN CORPUSCULAR HGB CONC 32.2 g/dL (32.0-36.0); MEAN CORPUSCULAR VOLUME 93.9 fL (81.0-99.0); MEAN PLATELET VOLUME 10.2 fL (7.9-10.8); MONOCYTES # (AUTO) 0.5 10^3/uL (0.0-1.0); MONOCYTES % (AUTO) 5.7 %; NEUTROPHILS # (AUTO) 5.3 10^3/uL (1.5-6.6); NEUTROPHILS % (AUTO) 65.3 %; PLT - PLATELET COUNT 273 10^3/uL (130-450); RED BLOOD COUNT 4.43 10^6/uL (4.20-5.40); RED CELL DISTRIBUTION WIDTH 12.6 % (12.0-15.0); WHITE BLOOD COUNT 8.1 x10^3/uL (4.8-10.8)
[2023-02-13] MEDS ORDERED: MORPHINE 2 MG/ML CARPUJECT IVP STA (13:17)
--- NOTE | 2023-02-13 13:40 | ED Physician Documentation ---
PD HPI CHEST PAIN - Stated complaint Stated Complaint: UPPER ABD PX - Chief complaint Chief Complaint: Cardiac - History obtained from History obtained from: Patient - History of Present Illness Timing - duration: Days (2) Timing - details: Gradual onset Pain level max: 9 Pain level now: 9 - Additional information Additional information: Patient is a 67-year-old female who presents to the emergency department complaining of left-sided chest pain. She states that it starts in the left axilla and left arm and feels like there is a hot poker going through her left breast. Been ongoing for the past 2 days. She has not taken anything at home for this. Worse with movement, breathing. She does not see any rashes. She states it does not hurt to touch. No skin changes. No history of heart disease. No changes to her medications. She states that it has been constant. Nothing makes it better. She states she only feels short of breath because it hurts. Review of Systems Constitutional: denies: Fever Nose: denies: Rhinorrhea / runny nose Respiratory: denies: Cough, Wheezing GI: denies: Abdominal Pain, Nausea, Vomiting, Constipation, Diarrhea : denies: Dysuria Skin: denies: Rash Musculoskeletal: denies: Neck pain, Back pain Neurologic: denies: Headache PD PAST MEDICAL HISTORY - Past Medical History Cardiovascular: High cholesterol Respiratory: None Neuro: None Endocrine/Autoimmune: None GI: None [employer]: None : None HEENT: None Psych: None Musculoskeletal: None Derm: None - Past Surgical History Past Surgical History: Yes General: Colonoscopy Ortho: Other - Present Medications Home Medications: Ambulatory Orders Medication Instructions Recorded Confirmed Sertraline [Zoloft] 50 mg PO DAILY 04/23/20 12/05/21 Atorvastatin Calcium 40 mg PO HS 12/05/21 12/05/21 HYDROcod/ACETAM 5/325 [[place]airo 5/325] 1 ea PO Q6H PRN #18 tablet 12/05/21 Meclizine HCl [Motion Sickness] 25 mg PO Q6H PRN #25 tablet 12/05/21 dexAMETHasone [Decadron] 4 mg PO DAILY #5 tablet 12/05/21 methocarbamoL [Robaxin] 500 mg PO TID PRN #25 tablet 12/05/21 Ciprofloxacin HCl [Cipro] 500 mg PO BID #20 tablet 02/02/22 HYDROcod/ACETAM 5/325 [[place] 5/325] 1 - 2 tab PO Q6H PRN #15 tablet 02/02/22 metroNIDAZOLE [Flagyl] 500 mg PO TID 10 Days #30 tablet 02/02/22 Oxycodone HCl/Acetaminophen 1 each PO Q6H PRN #14 tablet MDD 6 02/13/23 [Percocet 5-325 mg Tablet] tabs Valacyclovir HCl [Valtrex] 1,000 mg PO TID #21 tablet 02/13/23 predniSONE [Deltasone] 40 mg PO DAILY #14 tablet 02/13/23 - Allergies Allergies/Adverse Reactions: Allergies Allergy/AdvReac Type Severity Reaction Status Date / Time No Known Drug Allergies Allergy Verified 02/02/22 08:14 - Social History Does the pt smoke?: No Smoking Status: Never smoker Does the pt drink ETOH?: Yes Does the pt have substance abuse?: No - Immunizations Immunizations are current?: Yes - POLST Patient has POLST: No PD ED PE NORMAL - Vitals Vital signs reviewed: Yes - General General: Alert and oriented X 3, No acute distress - HEENT HEENT: PERRL - Neck Neck: Supple, no meningeal sign - Cardiac Cardiac: RRR, No murmur, Strong equal pulses, Other (There is no tenderness over the left chest wall, left breast appears normal. There is no tenderness over the posterior aspect of the left chest. There are no skin changes. The patient does wince when she sits up.) - Respiratory Respiratory: No respiratory distress, Clear bilaterally - Abdomen Abdomen: Normal bowel sounds, Soft, Non tender, Non distended - Back Back: No CVA TTP, No spinal TTP - Derm Derm: Warm and dry - Extremities Extremities: No edema, No calf tenderness / cord - Neuro Neuro: Alert and oriented X 3 - Psych Psych: Normal mood, Normal affect Results - Vitals Vitals: Vital Signs - 24 hr 02/13/23 02/13/23 02/13/23 12:21 13:11 15:07 Temperature 36.6 C Heart Rate 78 66 60 Respiratory 18 18 18 Rate Blood Pressure 163/70 H 147/71 H 146/67 H O2 Saturation 95 97 95 Oxygen O2 Source Room air - EKG (time done) 1230 EKG releavant findings:: EKG personally interpreted by author of this note. Relevant findings are: Rate: Rate (enter#) (71) Rhythm: NSR [place]: Normal Intervals: Normal [place] QRS: Normal Ischemia: Normal ST segments, Q waves (V1-2) - Labs Labs: Laboratory Tests 02/13/23 02/13/23 02/13/23 13:08 13:08 13:08 WBC 8.1 RBC 4.43 Hgb 13.4 Hct 41.6 MCV 93.9 MCH 30.2 MCHC 32.2 RDW 12.6 Plt Count 273 MPV 10.2 Neut # (Auto) 5.3 Lymph # (Auto) 2.1 [place] # (Auto) 0.5 Eos # (Auto) 0.2 Baso # (Auto) 0.1 Absolute Nucleated RBC 0.00 Nucleated RBC % 0.0 Sodium 143 Potassium 3.8 Chloride 109 Carbon Dioxide 27 Anion Gap 7.0 BUN 15 Creatinine 0.6 Estimated GFR (MDRD) 99 Glucose 95 Calcium 9.0 Total Bilirubin 0.5 AST 17 ALT 17 Alkaline Phosphatase 93 Troponin I High Sens 5.1 Total Protein 7.2 Albumin 3.9 Globulin 3.3 Albumin/Globulin Ratio 1.2 Lipase 34 - Rads (name of study) cxr Relevant Findings:: Final report received, See rad report CT PA Relevant Findings:: Final report received, See rad report PD Medical Decision Making - ED course Complexity details: reviewed results, re-evaluated patient, considered differential (No ST elevation GA, no aortic dissection, no PE, no tension pneumothorax, no aortic aneurysm), d/w patient ED course: Patient with left-sided chest wall pain. Seems to be and somewhat of a de rmatomal pattern. No acute findings on CBC, ER abdominal panel. Negative high- sensitivity troponin. Chest x-ray does not show any acute abnormalities. Concern for possible PE given the pleuritic nature of the pain, CT pulmonary angiogram is negative. Possible shingles without rash. We will place her on antivirals and pain medications and have her follow-up with her doctor for further care. Patient counseled regarding signs and symptoms for which I believe and urgent re-evaluation would be necessary. Patient with good understanding of and agreement to plan and is comfortable going home at this time This document was made in part using voice recognition software. While efforts are made to proofread this document, sound alike and grammatical errors may occur. Departure - Departure Disposition: Home, Self Care Clinical Impression: Chest wall pain Shingles Qualifiers: Herpes zoster complications: without complications Qualified Code(s): B02.9 - Zoster without complications Condition: Good Instructions: ED Chest Pain Atypical Unkn Cause, ED Shingles Follow-Up: BIMAL GIANG DO [Primary Care Provider] - Within 1 week Prescriptions: predniSONE [Deltasone] 40 mg PO DAILY #14 tablet Oxycodone HCl/Acetaminophen [Percocet 5-325 mg Tablet] 1 each PO Q6H PRN #14 tablet MDD 6 tabs PRN Reason: pain Valacyclovir HCl [Valtrex] 1,000 mg PO TID #21 tablet Comments: Please follow-up with your doctor for further care. Your heart test did not show any acute abnormalities today. There is no evidence of blood clot in your lungs. There is no evidence of tumors or masses. Your symptoms could be consistent with shingles without a rash. We will trial you on antivirals, pain medications and have you follow-up closely with your doctor. Please return if you worsen. I am prescribing a short course of narcotic pain medication for you. These are potentially dangerous and addictive medications that should be used carefully. These medications may constipate you. Take an [id number] stool softener (docusate) twice daily with plenty of water while taking these medications. If you go 24 hours without a bowel movement, take [id number] miralax, per package instructions. Do not drink or drive while taking these medications. If you received narcotic or sedating medications while in the emergency department, do not drive for 24 hours. Store this medication in a safe, secure place and out of reach of children. It is a violation of federal law to give or sell this medication to another person or to use in a manner other than prescribed. The ED will not refill narcotic prescriptions, including prescriptions lost or stolen. To dispose of unwanted medications: 1. [facility] at [address] in [place] has a medication drop box. They accept prescription medications (in pill form) Sunday through Sunday 9:00 a.m. to 5:00 p.m. 2. [facility] [employer] accepts prescription medications (in pill form only) for disposal year round. Call for more information. 3. Contact the [facility] for the next [facility] sponsored prescription drug collection event. , [phone], or [phone]; Discharge Date/Time: 02/13/23 15:14
[2023-02-13 13:43] LABS: ALBUMIN 3.9 g/dL (3.2-5.5); ALBUMIN/GLOBULIN RATIO 1.2 (1.0-2.2); BILIRUBIN,TOTAL 0.5 mg/dL (0.2-1.0); CREATININE 0.6 mg/dL (0.4-1.0); POTASSIUM 3.8 mmol/L (3.5-5.0); TOTAL PROTEIN 7.2 g/dL (6.7-8.2)
[2023-02-13] MEDS ORDERED: iohexoL-300 100 ML VIAL ONE (14:05)
--- NOTE | 2023-02-13 14:40 | CT Report ---
PROCEDURE: ANGIO CHEST W/WO INDICATIONS: L chest pleuritic pain CONTRAST: 80 ml Omnipaque 300 TECHNIQUE: After the administration of intravenous contrast, 2 mm axial images were acquired from the pulmonary apices to the posterior costophrenic angles during the arterial phase. In addition, 1 mm lung kernel and 5 mm soft tissue kernel reconstructions were performed. 3-dimensional coronal oblique maximum int ensity projection (MIP) reformats, 8 mm axial MIP, and 5 mm coronal and sagittal MPR reformats were t hen performed through the thorax. For radiation dose reduction, the following was used: automated exp osure control, adjustment of mA and/or kV according to patient size. COMPARISON: Chest x-ray 09/15/2023 FINDINGS: Image quality: Excellent. Large vessels: No filling defect within the opacified pulmonary arteries. No evidence of acute aortic syndrome. No thoracic aortic aneurysm. Lungs and pleura: No pleural effusions. No pneumothorax. No suspicious pulmonary nodules which requi re follow up. Mediastinum: Heart size is normal. No pericardial effusions. No mediastinal adenopathy by size criter ia. Chest wall and lower neck: Thyroid is unremarkable. No axillary or supraclavicular adenopathy by size . Bones: No aggressive osseous abnormality. Upper Abdomen: Partially visualized simple hepatic cyst. IMPRESSION: No pulmonary embolus. Lungs are clear. Reviewed by: Mary Monk MD on 02/13/2023 2:38 PM PDT Approved by: Mary Monk MD on 02/13/2023 2:38 PM PDT Station ID: [id number]
[2023-02-13 15:08] VITALS: BP 146/67
[2023-02-13] MEDS ORDERED: iohexoL-300 100 ML VIAL IVP ONE (17:48)
== END 2023-02-13 15:14 | disposition home or self-care (01) ==
LOC: ED 12:15
DX: R07.89 Other chest pain (principal); B02.9 Zoster without complications
CPT/HCPCS: 36415; 71045; 71275; 80053; 83690; 84484; 85025; 93005; 96374; 99284; Q9967

== ENCOUNTER 2024-06-04 12:01 | Outpatient (CLI) | payer MEDICARE, OTHER ==
--- NOTE | 2024-06-05 09:13 | Mammography Report ---
BILATERAL DIGITAL DIAGNOSTIC MAMMOGRAM 3D/2D WITH EXAGGERATED CC: 06/04/2024 CLINICAL: Patient returns for a 6 month follow up of the right breast, due for bilateral exam. Comparison is made to exams dated: 03/14/2023 mammogram, 11/22/2023 mammogram - [facility], 06/13/2021 mammogram, 06/22/2020 mammogram - [facility], 11/22/2023 ultrasound, and 023 ultrasound - [facility]. There are scattered areas of fibroglandular density in both breasts (category b / 25%-50% glandular t issue). There are benign post operative findings in both breasts. There is a stable oval mass with a circumscribed margin in the right breast at 9 o'clock middle depth . No other significant masses, calcifications, or other findings are seen in either breast. IMPRESSION: INCOMPLETE: NEEDS ADDITIONAL IMAGING EVALUATION The stable oval mass in the right breast is indeterminate. An ultrasound is recommended. Based on the Tyrer Cuzick model (a risk assessment model) the patient's lifetime risk is 6.1% and her 10 year risk is 3.6%. According to the ACR, ACS, and NCCN guidelines, an annual breast MRI exam rhiannon g with mammogram is recommended if the patient's lifetime risk is 20% or greater. This exam was interpreted at Station ID: [id number]. NOTE: For mammograms, a report in lay terms will be sent to the patient. Approximately 15% of breast malignancies will not be visualized mammographically. In the management of a palpable breast mass, a negative mammogram must not discourage biopsy of a clinically suspicious lesion. Electronically Signed By: Galo cook/lamar:06/04/2024 20:29:00 ACR BI-RADS Category 0: Incomplete 3340F PARENCHYMAL PATTERN: (A) - The breast(s) demonstrate(s) scattered fibroglandular densities. BI-RADS CATEGORY: (0) - 0 Ultrasound [id number] Immediate follow-up LATERALITY: (R)
--- NOTE | 2024-06-05 09:13 | Ultrasound Report ---
LIMITED ULTRASOUND OF RIGHT BREAST: 06/04/2024 CLINICAL: Patient returns today to evaluate a focal asymmetry in the right breast. Comparison is made to exams dated: 06/04/2024 mammogram - Located within [facility], 11/22/2023 nilson mogram, 11/22/2023 ultrasound, 03/16/2023 ultrasound, 03/14/2023 mammogram - [facility], and 2020 mammogram - Located within [facility]. Color flow and real-time ultrasound of the right breast 9 o'clock region were performed. Alberts scale images of the real-time examination were reviewed. There is a stable 0.6 cm x 0.6 cm x 0.5 cm oval mass with a circumscribed margin in the right breast at 9 o'clock middle depth 5 cm from the nipple. This oval mass is hypoechoic. IMPRESSION: PROBABLY BENIGN The stable 0.6 cm x 0.6 cm x 0.5 cm oval mass in the right breast resembles a fibroadenoma and is pro bably benign. A follow-up mammogram and an ultrasound in 12 months is recommended. This exam was interpreted at Station ID: [id number]. Electronically Signed By: Galo cook/lamar:06/04/2024 20:32:20 Ultrasound BI-RADS: 3 Probably benign BI-RADS CATEGORY: (3) - 3 Mammo and [place] [id number] 12 month follow-up LATERALITY: (B)
== END 2024-06-04 12:02 | disposition home or self-care (01) ==
LOC: DI 12:01
PROVIDERS: ATTEND Nurse Practitioner Family
DX: D24.1 Benign neoplasm of right breast (principal); R92.323 Mammographic fibroglandular density, bilateral breasts